=== PATIENT | male | born 1970 | race Caucasian/White ===

== ENCOUNTER 2023-03-23 08:25 | Day surgery (SDC) | payer BC ==
[~2023-03-23] VITALS: Ht 172.7 cm; Wt 113.4 kg
[2023-03-23] MEDS ORDERED: MEPERIDINE 100 MG INJ. 100 MG/ML VIAL ONE (09:00)
[2023-03-23] MEDS ORDERED: MIDAZOLAM HCL 5 MG/5 ML VIAL ONE (09:00)
[2023-03-23] MEDS ORDERED: DIPHENHYDRAMINE INJ 50 MG/ML VIAL ONE (09:00)
[2023-03-23 09:15] VITALS: O2SAT 99
[2023-03-23 12:43] VITALS: BP_SYST 170; PULSE 70; RESP 16
== END 2023-03-23 10:40 | disposition home or self-care (01) ==
LOC: SDS 08:25 → SMU 08:34 → SDS 10:40
PROVIDERS: ATTEND Internal Medicine Gastroenterology
DX: K62.5 Hemorrhage of anus and rectum (principal); D12.3 Benign neoplasm of transverse colon; K57.30 Diverticulosis of large intestine without perforation or abscess without bleeding; K64.8 Other hemorrhoids
CPT/HCPCS: 45385; 88305; 99152; G0378; J2250; J2175; J1200